=== PATIENT | female | born 1930 | race Caucasian/White ===

== ENCOUNTER 2016-07-11 13:03 | Emergency (ER) | payer MEDICARE, OTHER ==
[~2016-07-11 13:03] MED LIST: ANTI-ITCH28 GM TP; ASA CHILDREN'S81 MG PO; CALCIUM CARBONATE PO; EXELON3 MG PO; GABAPENTIN100 MG PO; HIBICLENS120 ML PO; HYDROCODONE 5MG/5 MG PO; LEXAPRO DPS10 MG PO; LIPITOR DPS10 MG PO; METOPROLOL TART25 MG PO; NEURONTIN DPS100 MG PO; QUETIAPINE FUMA25 MG PO; TYLENOL DPS325 MG PO; VITAMIN D-3 PO
--- NOTE | 2016-07-15 17:07 | ER ---
ADMIT: 07/11/2016 RM/LOC: ER [facility] MR#: [id number] [facility] [id number] M[place] R[place]SE[place] I [facility] [place] [address] Emergency Room Report SEX: F AGE: 86 : 1930 DATE: 07/11/2016 ADDENDUM: An 86-year-old white female coming in with more somnolent. She is coming in from the correction. We did check CT, CBC, chemistries, chest x- ray. Those all looked okay. She did wake up after a while with a little encouragement, able to go up and down the hallway in her walker normal. I spoke with Dr. Huber. We are going to change her Sinemet to b.i.d. instead of t.i.d. and then change her Haldol from 1 pill which is 2 mg to half a pill which is 1 mg p.o. b.i.d. She will see her on correction rounds on Monday. Family was here, advised. They agree and understand. CONDITION ON DISCHARGE: Fair. Andrew Corbin MD/ wale JOB #: [id number] CC: Andrew Corbin MD, Attending Physician Jozef Kurtz MD, Family Physician
== END 2016-07-11 16:15 | disposition home or self-care (01) ==
LOC: ER 13:03
DX: G20 Parkinson's disease (principal); F03.90 Unspecified dementia, unspecified severity, without behavioral disturbance, psychotic disturbance, mood disturbance, and anxiety; E78.5 Hyperlipidemia, unspecified; Z79.82 Long term (current) use of aspirin; Z79.899 Other long term (current) drug therapy